=== PATIENT | female | born 1995 | race Caucasian/White ===

== ENCOUNTER 2019-05-07 19:08 | Emergency (ER) | payer MEDICAID ==
[~2019-05-07] VITALS: Ht 160 cm; Wt 71.3 kg
[2019-05-07 20:22] VITALS: BP 111/64
== END 2019-05-07 20:22 | disposition home or self-care (01) ==
LOC: ED 19:08
DX: R19.7 Diarrhea, unspecified (principal); R10.13 Epigastric pain; R11.0 Nausea; R53.1 Weakness